=== PATIENT | female | born 1990 | race Caucasian/White ===

== ENCOUNTER → 2025-01-07 13:27 | Outpatient (CLI) | payer BC, SELFPAY ==
[2025-01-07 18:50] LABS: Hematocrit 37.0 % (36-46); Hemoglobin 12.6 g/dL (12.0-16.0); Mean Corpuscular HGB Conc 34.0 % (30-36); Mean Corpuscular Hemoglobin 29.6 PG (26-34); Mean Corpuscular Volume 86.9 fL (80-100); Platelet Count 323 X10^3/uL (150-400)
[2025-01-07 18:58] LABS: HEMOLYSIS < 15 (0-50); Iron 75 ug/dL (37-170)
[2025-01-07 19:09] LABS: Percent Iron Saturation 30 % (15-50); Total Iron Binding Capacity 253 ug/dL (265-497); Transferrin 222 mg/dL (206-381)
[2025-01-07 19:12] LABS: Alanine Aminotransferase 17 IU/L (<35); Albumin 4.8 g/dL (3.5-5.0); Albumin Globulin Ratio 1.7 (1.0-2.8); Alkaline Phosphatase 86 U/L (38-126); Blood Urea Nitrogen 14 mg/dL (7-17); Calcium 9.8 mg/dL (8.4-10.2); Carbon Dioxide 28 mmol/L (22-32); Chloride 102 mmol/L (98-107); Estimated Glomerular Filt Rate > 60 mL/min (>60); Globulin 2.9 g/dL (1.7-4.1); Glucose 101 mg/dL (70-99); HEMOLYSIS < 15 (0-50); Potassium 4.4 mmol/L (3.4-5.1); Sodium 138 mmol/L (137-145); Total Protein 7.7 g/dL (6.3-8.2)
[2025-01-07 19:25] LABS: Vitamin D 25 Hydroxy (D3) 98.3 ng/mL (30.0-100.0)
[2025-01-07 19:42] LABS: Ferritin 95 ng/mL (6-137); Thyroid Stimulating Hormone 0.691 uIU/mL (0.47-4.68)
[2025-01-07 20:17] LABS: Folate 5.2 ng/mL (2.76-20.0); Vitamin B12 342 pg/mL (239-931)
== END ==
PROVIDERS: PCP Family Medicine; Visit Provider Family Medicine
DX: E55.9 Vitamin D deficiency, unspecified (principal); R63.4 Abnormal weight loss; Z71.3 Dietary counseling and surveillance; Z86.2 Personal history of diseases of the blood and blood-forming organs and certain disorders involving the immune mechanism
CPT/HCPCS: 80053; 82306; 82607; 82728; 82746; 83540; 83550; 84443; 85027